=== PATIENT | female | born 1975 | race Caucasian/White ===

== ENCOUNTER 2017-07-21 15:31 | Emergency (ER) | payer OTHER ==
[2017-07-21 15:48] VITALS: BMI 34.7
[2017-07-21 15:53] VITALS: RESP 18; TEMP 98.3
[2017-07-21] MEDS ORDERED: Acetaminophen 650mg/20.3ml solution UD ONE (16:39)
[2017-07-21] MEDS ORDERED: Aluminum Hydroxide/Magnesium Hydroxide Susp (30 mL) PO STA (17:19)
[2017-07-21] MEDS ORDERED: Aluminum Hydroxide/Magnesium Hydroxide Susp (30 mL) ONE (17:24)
--- NOTE | 2017-07-21 17:40 | C.PDOC ---
History Of Present Illness 41 y/o female presents to ED with complaints of mass to right side to roof of mouth for 1 year and burning sensation to throat with associated pain when swallowing. Patient states mass has become more uncomfortable which prompted visit to ed today. Patient reports she was seen by Dentist and is pending to see oral surgeon. Patient denies fever, chills or any other complaints at this time. Time Seen by Provider: 07/21/17 15:58 Chief Complaint (Nursing): ENT Problem History Per: Patient History/Exam Limitations: None Onset/Duration Of Symptoms: Worse Since (1 year) Current Symptoms Are (Timing): Still Present Symptoms Have Been: Continuous Past Medical History Reviewed: Historical Data, Nursing Documentation, Vital Signs Vital Signs: Last Vital Signs Temp 98.3 F 07/21/17 15:48 Pulse 75 07/21/17 18:24 Resp 18 07/21/17 18:24 BP 132/75 07/21/17 18:24 Pulse Ox 100 07/25/17 06:10 - Medical History PMH: Anemia, Asthma, Gastritis, GERD, HTN Surgical History: Cholecystectomy - [facility] INJECT/INFUSE NEC (07/26/14) Family History: States: No Known Family Hx - Social History Hx Alcohol Use: Yes Hx Substance Use: No Review Of Systems Constitutional: Negative for: Fever, Chills ENT: Positive for: Mouth Pain, Throat Pain Cardiovascular: Negative for: Chest Pain Respiratory: Negative for: Cough, Shortness of Breath Gastrointestinal: Negative for: Nausea, Vomiting Skin: Negative for: Rash Physical Exam - Physical Exam Appears: Non-toxic, No Acute Distress Skin: Warm, Dry, No Rash Head: Atraumatic, Normacephalic Eye(s): bilateral: Normal Inspection Nose: Normal Oral Mucosa: Moist Tongue: Normal Appearing, No Swelling Lips: Normal Appearing, No Swelling Teeth: Normal Dentition Gingiva: Erythema (mild), Tender (mass to right roof of mouth. ) Throat: Normal, No Erythema, No Exudate, Other (Few lymph nodes) Neurological/Psych: Oriented x3 ED Course And Treatment O2 Sat by Pulse Oximetry: 100 (RA) Pulse Ox Interpretation: Normal Medical Decision Making Medical Decision Making: with firm mass in upper palate for one year, getting worse.now with burning sensatin in throat wiht difficult swallowing, rapid strep negative. Disposition - Disposition Disposition: HOME/ ROUTINE Disposition Time: 18:20 Condition: STABLE Additional Instructions: Follow up with oral surgeon as soon as possible. 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 - Scribe Statement The provider has reviewed the documentation as recorded by the Scribjarad Savage All medical record entries made by the Scribe were at my direction and personally dictated by me. I have reviewed the chart and agree that the record accurately reflects my personal performance of the history, physical exam, medical decision making, and the department course for this patient. I have also personally directed, reviewed, and agree with the discharge instructions and disposition.
[2017-07-21 18:24] VITALS: BP 132/75; PULSE 75
[2017-07-21 20:05] VITALS: O2SAT 100
== END 2017-07-21 18:25 | disposition home or self-care (01) ==
LOC: C.ER 15:31
DX: R22.0 Localized swelling, mass and lump, head (principal)